=== PATIENT | female | born 1980 | race Hispanic/Latino ===

== ENCOUNTER 2020-05-29 10:27 | Emergency (ER) | payer OTHER ==
[2020-05-29] MEDS ORDERED: LIDOCAINE HCL-MPF 1% 2ML VIAL ONE (10:43)
[2020-05-29] MEDS ORDERED: TETANUS/DIPHTHERIA TOXOID [ADULT] 0.5 ML VIAL IM ONE (11:33)
== END 2020-05-29 12:05 | disposition home or self-care (01) ==
LOC: EDH 10:27
DX: S61.216A Laceration without foreign body of right little finger without damage to nail, initial encounter (principal); G43.909 Migraine, unspecified, not intractable, without status migrainosus; Z90.49 Acquired absence of other specified parts of digestive tract; X58.XXXA Exposure to other specified factors, initial encounter; Y93.G1 Activity, food preparation and clean up; Y92.098 Other place in other non-institutional residence as the place of occurrence of the external cause; Y99.8 Other external cause status
CPT/HCPCS: 90471; 90714; 99283; J3490